=== PATIENT | female | born 1995 | race Caucasian/White ===

== ENCOUNTER 2016-10-29 07:34 | Emergency (ER) | payer OTHER ==
[~2016-10-29] VITALS: Ht 162.6 cm; Wt 72.0 kg
[~2016-10-29 07:34] MED LIST: Z.0.BCPILL PO
[2016-10-29 07:38] VITALS: BP 114/70; PULSE 53; RESP 14; TEMP 98; O2SAT 100
[2016-10-29 07:51] VITALS: BP 114/70; PULSE 53; RESP 16; TEMP 98; O2SAT 100
[2016-10-29 08:21] LABS: BLOOD, URINE TRACE (NEG); GLUCOSE,URINE NEG (NEG); KETONE, URINE NEG (NEG); NITRITE,URINE NEG (NEG); PH, URINE 6.5 (5.0-8.5)
[2016-10-29 08:23] LABS: METHOD OF COLLECTION CLEAN CATCH; URINE COLOR YELLOW (YELLW/STRAW)
[2016-10-29 08:34] LABS: BACTERIA, URINE MOD /hpf; COMMENT (UR) CULTURE INDICATED; CULTURE IF INDICATED CULTURE INDICATED; SQUAMOUS EPITHELIAL CELL URINE 0-5 /hpf (0-5)
[2016-10-29] MEDS ORDERED: BACT800T5 PO (08:40)
[2016-10-29] MEDS ORDERED: PHEN0.4T PO (08:40)
--- NOTE | 2016-10-29 08:40 | PD ---
HPI Chief Complaint: Musculoskeletal Complaint Time Seen by Provider: 07:51 Travel History International Travel<30 days: No Contact w/Intl Traveler<30days: No Traveled to known affect area: No History of Present Illness HPI 21-year-old female complains of malaise and weakness. She reports suprapubic abdominal pain and low back pain. Duration about 2 days. She noticed pink color on toilet paper after urinating this morning. Last menstruation 2 weeks ago. No vomiting or fever. PFSH Past Medical History Medical History: Denies Significant Hx Diminished Hearing: No Immunizations Current: Yes Tetanus Vaccination: < 5 Years Influenza Vaccination: No ?: Not LMP: 1 1/2 weeks ago Past Surgical History Surgical History: No Previous Surgery Social History Alcohol Use: No Tobacco Use: No Substance Use: No Allergies-Medications (Allergen,Severity, Reaction): Coded Allergies: No Known Allergies (Verified , 03/10/16) Reported Meds & Prescriptions Reported Meds & Active Scripts Active Pyridium (Phenazopyridine HCl) 100 Mg Tab 100 Mg PO Q8H PRN Bactrim DS (Sulfamethoxazole-Trimethoprim) 800-160 Mg Tab 1 Tab PO BID Review of Systems Except as stated in HPI: all other systems reviewed are Neg General / Constitutional: No: Fever Physical Exam Narrative GENERAL: 21-year-old female pleasant well-nourished well-developed SKIN: Focused skin assessment warm/dry. HEAD: Atraumatic. Normocephalic. EYES: Pupils equal and round. No scleral icterus. No injection or drainage. ENT: No nasal bleeding or discharge. Mucous membranes pink and moist. NECK: Trachea midline. No JVD. CARDIOVASCULAR: Regular rate and rhythm. No murmur appreciated. RESPIRATORY: No accessory muscle use. Clear to auscultation. Breath sounds equal bilaterally. GASTROINTESTINAL: Soft. Minimal tenderness to palpations of her pubic abdomen. No flank tenderness. MUSCULOSKELETAL: No obvious deformities. No clubbing. No cyanosis. No edema. NEUROLOGICAL: Awake and alert. No obvious cranial nerve deficits. Motor grossly within normal limits. Normal speech. PSYCHIATRIC: Appropriate mood and affect; insight and judgment normal. Data Data Last Documented VS Vital Signs Date Time Temp Pulse Resp B/P Pulse Ox O2 Delivery O2 Flow Rate FiO2 10/29/16 07:56 16 10/29/16 07:51 98.0 53 114/70 100 10/29/16 07:38 Room Air Vital signs reviewed Orders Urinalysis - C+S If Indicated (10/29/16 08:00) Ed Urine Pregnancytest Poc (10/29/16 08:00) Urine Culture (10/29/16 08:00) Sulfamet-Trimeth Ds 800-160 Mg (Bactrim (10/29/16 08:45) Labs Laboratory Tests Test 10/29/16 08:00 Urine Collection Type CLEAN CATCH Urine Color YELLOW Urine Turbidity CLEAR Urine pH 6.5 Urine Specific [place] 1.008 Urine Protein NEG mg/dL Urine Glucose (UA) NEG mg/dL Urine Ketones NEG mg/dL Urine Occult Blood TRACE Urine Nitrite NEG Urine Bilirubin NEG Urine Leukocyte Esterase NEG Urine RBC 4-9 /hpf Urine Squamous Epithelial 0-5 /hpf Cells Urine Amorphous Sediment FEW Urine Bacteria MOD /hpf Microscopic Urinalysis Comment CULTURE INDICATED Urine Collection Time [address] [facility] Medical Decision Making Medical Screen Exam Complete: Yes Emergency Medical Condition: Yes Medical Record Reviewed: Yes Differential Diagnosis UTI, intrauterine , appendicitis, menstruation, menometrorrhagia Narrative Course Urinalysis: Bacteriuria Plan carrier : Negative Urine culture pending. Bactrim prescription. Return precautions discussed. Diagnosis Primary Impression: Bacteriuria Referrals: Primary Care Physician 2 days Additional Instructions: You have a choice when it comes to health care, and we are glad that you chose [facility]. Hopefully, we have met your expectations on today's visit. You are welcome to return to [facility] at any time, as we are committed to meeting the health care needs of our community. Med/Other Pt SpecificInfo: Prescription(s) given Scripts Phenazopyridine (Pyridium)100 Mg [id number] Mg PO Q8H PRN (DYSURIA) #6 TAB Ref 0 Prov:Freddie Tipton MD 10/29/16 Sulfamethoxazole-Trimethoprim (Bactrim DS)800-160 Mg Tab1 Tab PO BID #6 TAB Ref 0 Prov:Freddie Tipton MD 10/29/16 Disposition: 01 DISCHARGE HOME Condition: Stable Freddie Tipton MD Oct 29, 2016 08:40
[2016-10-29] MEDS ORDERED: SULFAMETHOXAZOLE-TRIMETHOPRIM DS 800-160 MG TAB PO ONE (08:45)
== END 2016-10-29 09:15 | disposition home or self-care (01) ==
LOC: PHED 07:34
DX: R82.71 Bacteriuria (principal); B96.89 Other specified bacterial agents as the cause of diseases classified elsewhere
CPT/HCPCS: 81001; 84703; 87086; 99284